=== PATIENT | male | born 1960 | race Caucasian/White ===

== ENCOUNTER → 2018-12-23 | Outpatient (CLI) | payer OTHER ==
--- NOTE | 2018-12-23 15:51 | KCIC ---
MR of the right forefoot HISTORY: Right forefoot pain. Swelling. First toe injury a few weeks ago. TECHNIQUE: Routine multiplanar sequences are obtained. FINDINGS: Degenerative changes at the first MTP joint, severe, with subchondral cystic change and edema. Small first MTP joint effusion. There is some hypointense signal just at the superior first MTP may represent an osteophyte from the base of the proximal phalanx. Loose body is also considered. No evidence of acute fracture or aggressive bone destruction. No acute sesamoiditis. No evidence of acute tendon disruption. No significant tendon sheath fluid. Lisfranc ligament complex is intact as is tarsometatarsal alignment. No abnormal soft tissue fluid collection. IMPRESSION: Severe first MTP joint primary osteoarthritis with small effusion. Structure just superior to the joint likely represents an osteophyte or possible loose body. Electronically signed by: Gerardo Augustin MD (12/23/2018 3:48 PM) [id number]
--- NOTE | 2018-12-23 16:38 | KCIC ---
MR of the right knee HISTORY: Right knee pain laterally. Technique routine multiplanar sequences are obtained. FINDINGS: Blunting of the medial meniscus could be due to a tear or prior meniscectomy. Regardless, there is linear T2 signal violating the surface compatible with a tear. No evidence of a lateral meniscal tear. Anterior cruciate ligament is intact. There is a small cyst just inferior to the proximal ACL compatible with a ganglion. Mild cystic change within the subligamentous tibia. Posterior cruciate ligament intact. Posterior cruciate ligament intact. Iliotibial band unremarkable. Fibular collateral ligament, biceps femoris tendon and popliteus tendon are intact. Extensor mechanism is intact. No acute retinacular tear. Small joint effusion. Moderate chondromalacia of the patella. No evidence of acute fracture or aggressive bone destruction. Moderate chondromalacia at the medial femoral condyle. IMPRESSION: 1. Medial meniscal tear. 2. Primary osteoarthritis with chondromalacia. Electronically signed by: Gerardo Augustin MD (12/23/2018 4:35 PM) [id number]
== END | disposition home or self-care (01) ==
LOC: KCIC MRI 13:58
PROVIDERS: ATTEND Orthopaedic Surgery Sports Medicine
DX: S83.241A Other tear of medial meniscus, current injury, right knee, initial encounter (principal); M17.11 Unilateral primary osteoarthritis, right knee; M19.071 Primary osteoarthritis, right ankle and foot; M25.474 Effusion, right foot; M25.462 Effusion, left knee; M22.41 Chondromalacia patellae, right knee; X58.XXXA Exposure to other specified factors, initial encounter; Y93.89 Activity, other specified; Y92.89 Other specified places as the place of occurrence of the external cause; Y99.8 Other external cause status
CPT/HCPCS: 73718; 73721

== ENCOUNTER 2019-06-24 10:29 | Day surgery (SDC) | payer OTHER ==
[~2019-06-24 10:29] MED LIST: ASPI-630 PO; ATOR10TA60 PO; CHONDROIT-SOD-HYALURONATE KIT. ONE; CIPROFLOXACIN 0.3% OPHTH SOLUTION 5ML BOTTLE. OS ONE; HYDROmorphone 2 MG/ML VIAL IV PRN; IBUP-1007 PO; IV RINGERS,LACTATED 1000ML 1,000 ML IV SCH; LIDOCAINE 1% PF 2 ML VIAL. ID PRN; LIDOCAINE 1% PF 2 ML VIAL. ONE; LIDOCAINE 2% JELLY 6ML IN APPLICATOR. MM ONE; MORPHINE SULFATE 2 MG/ML VIAL. IV PRN; NEO/POLYMYX/DEXAMETH OPHTH OINTMENT 3.5GM TUBE. ONE; ONDANSETRON PF 4 MG/2 ML VIAL. IV PRN; PROCHLORPERAZINE 10 MG/2 ML VIAL. IV PRN; PROPARACAINE 0.5% OPHTH SOLUTION 15ML BOTTLE. OS ONE; fentaNYL PF VIAL 100 MCG/2 ML VIAL IV PRN
[2019-06-24] MEDS: CYCLOPENTOLATE 1% OPTH SOLUTION 2ML BOTTLE. OS SCH ×3 (11:16→11:28)
[2019-06-24] MEDS: PHENYLEPHRINE 10% OPHTH SOLUTION 5ML BOTTLE. OS SCH ×3 (11:16→11:28)
[2019-06-24] MEDS ORDERED: GLYCOPYRROLATE 1 MG/5 ML VIAL. ONE (12:53)
[2019-06-24 13:40] VITALS: BP 162/82
--- NOTE | 2019-06-24 18:12 | OP ---
DATE OF SURGERY: 06/24/2019 PREOPERATIVE DIAGNOSIS: Senile cataract with astigmatism, left eye. POSTOPERATIVE DIAGNOSIS: Senile cataract with astigmatism, left eye. PROCEDURE: Phacoemulsification with posterior chamber lens implant, left eye, toric lens. ANESTHESIA: Topical with MAC. DESCRIPTION OF PROCEDURE: The patient's anesthetic and dilating drops were given in the outpatient department and the [place] balloon cuff used for about 10 minutes. The patient was brought to the operating room and positioned on the table. The eye was prepped and draped in the usual sterile manner and a lid speculum placed between the eyelids. The operating microscope was brought into position and a paracentesis incision was made inferotemporally. An injection of 1% lidocaine was performed and Viscoat injected into the anterior chamber. The primary 2.4 mm incision was made temporally and a bent needle and forceps were used to perform a capsulorrhexis. The lens nucleus was hydrodissected and phacoemulsified with a phaco handpiece. The cortical material was aspirated with the I/A handpiece. Provisc was used to insufflate the bag and a posterior chamber toric multifocal implant was placed into the bag without difficulty. The implant was rotated so that it was at the 75-degree meridian. I made sure that the implant was stabilized in that position and then removed the Provisc with the I/A handpiece. The wound was hydrated and the anterior chamber injected with balanced salt to pressurize the eye. The wound was checked for leaks and there were none. There were no complications. The speculum and drape were removed and Maxitrol ointment instilled in the conjunctival sac and the eye was shielded. The patient was taken to the recovery room in satisfactory condition. K SUZETTE DASILVA MD DR: THANH/[place] JOB#: [id number] / [id number]
== END 2019-06-24 14:06 | disposition home or self-care (01) ==
LOC: SURG 10:29
PROVIDERS: ATTEND Ophthalmology
DX: H25.89 Other age-related cataract (principal); I10 Essential (primary) hypertension; E78.00 Pure hypercholesterolemia, unspecified; J44.9 Chronic obstructive pulmonary disease, unspecified; Z98.42 Cataract extraction status, left eye; Z98.41 Cataract extraction status, right eye; Z72.89 Other problems related to lifestyle; Z85.6 Personal history of leukemia; Z96.1 Presence of intraocular lens
CPT/HCPCS: 66984; C1780; J0171; J3490

== ENCOUNTER 2019-07-08 11:09 | Day surgery (SDC) | payer OTHER ==
[~2019-07-08 11:09] MED LIST changes: -CHONDROIT-SOD-HYALURONATE KIT. ONE; -CIPROFLOXACIN 0.3% OPHTH SOLUTION 5ML BOTTLE. OS ONE; -HYDROmorphone 2 MG/ML VIAL IV PRN; -IV RINGERS,LACTATED 1000ML 1,000 ML IV SCH; -LIDOCAINE 1% PF 2 ML VIAL. ID PRN; -LIDOCAINE 1% PF 2 ML VIAL. ONE; -LIDOCAINE 2% JELLY 6ML IN APPLICATOR. MM ONE; -MORPHINE SULFATE 2 MG/ML VIAL. IV PRN; -NEO/POLYMYX/DEXAMETH OPHTH OINTMENT 3.5GM TUBE. ONE; -ONDANSETRON PF 4 MG/2 ML VIAL. IV PRN; -PROCHLORPERAZINE 10 MG/2 ML VIAL. IV PRN; -PROPARACAINE 0.5% OPHTH SOLUTION 15ML BOTTLE. OS ONE; -fentaNYL PF VIAL 100 MCG/2 ML VIAL IV PRN
[2019-07-08] MEDS ORDERED: PROPARACAINE 0.5% OPHTH SOLUTION 15ML BOTTLE. OD ONE (11:30)
[2019-07-08] MEDS ORDERED: LIDOCAINE 2% JELLY 6ML IN APPLICATOR. MM SCH (11:30)
[2019-07-08] MEDS ORDERED: IV RINGERS,LACTATED 1000ML 1,000 ML IV SCH (11:45)
[2019-07-08] MEDS ORDERED: LIDOCAINE 1% PF 2 ML VIAL. ONE (11:52)
[2019-07-08] MEDS ORDERED: CHONDROIT-SOD-HYALURONATE KIT. ONE (11:52)
[2019-07-08] MEDS: CIPROFLOXACIN 0.3% OPHTH SOLUTION 5ML BOTTLE. OD ONE ×2 (11:55→12:05)
[2019-07-08] MEDS: PHENYLEPHRINE 10% OPHTH SOLUTION 5ML BOTTLE. OD SCH ×3 (11:55→12:05)
[2019-07-08] MEDS: CYCLOPENTOLATE 1% OPTH SOLUTION 2ML BOTTLE. OD SCH ×3 (11:55→12:05)
[2019-07-08] MEDS ORDERED: MIDAZOLAM HCL/PF 2 MG/2 ML VIAL. ONE (12:18)
[2019-07-08 13:29] VITALS: BP 161/88
--- NOTE | 2019-07-08 14:20 | OP ---
DATE OF SURGERY: 07/08/2019 PREOPERATIVE DIAGNOSIS: Senile cataract, right eye. POSTOPERATIVE DIAGNOSIS: Senile cataract, right eye. PROCEDURE: Phacoemulsification with posterior chamber lens implant, right eye. ANESTHESIA: Local with MAC. DESCRIPTION OF PROCEDURE: The patient's dilating and anesthetic drops were applied in the outpatient department and the [place] balloon cuff applied for about 10-15 minutes. The patient was then brought to the operating room and positioned on the table. The right eye was prepped and draped in the usual sterile manner for an intraocular procedure and a lid speculum placed between the eyelids. The operating microscope was brought into position. The eye was first marked as the patient was going to have a toric implant and the 110 degree meridian was marked with an axis marker. A paracentesis incision was made superior temporally and 1% lidocaine injected into the anterior chamber followed by an injection of Viscoat. The primary 2.4 mm incision was then made temporally and a capsulorrhexis made about the dilated pupillary border. The capsulorrhexis was about 6 mm in diameter. The lens nucleus was then hydrodissected and phacoemulsified without difficulty. The remaining cortex was removed with the I/A handpiece. The bag was insufflated with Provisc and a posterior chamber lens placed in the bag without difficulty. It was rotated to the 110 degree meridian and allowed to stabilize. The Provisc was then removed and the final adjustment to the implant was made. The eye was pressurized and the wound checked for leaks and there were none. The speculum and drape were removed and the eye shielded after the instillation of Maxitrol ointment. The patient was taken to recovery room in satisfactory condition. There were no complications and I will see the patient on Thursday in my office. K SUZETTE DASILVA MD DR: Jon JOB#: [id number] / [id number]
== END 2019-07-08 13:45 | disposition home or self-care (01) ==
LOC: SURG 11:09
PROVIDERS: ATTEND Ophthalmology
DX: H25.9 Unspecified age-related cataract (principal); Z72.89 Other problems related to lifestyle
CPT/HCPCS: 66984; C1780; J0171; J2250